=== PATIENT | female | born 1970 | race Caucasian/White ===

== ENCOUNTER 2025-08-26 20:06 | Emergency (ER) | payer MEDICAID, MEDICARE, OTHER ==
[~2025-08-26] VITALS: Ht 157.5 cm; Wt 88.6 kg
[2025-08-26] MEDS ORDERED: NOXI1TAB PO (20:22)
[2025-08-26] MEDS ORDERED: SYNT137T7 PO (20:22)
[2025-08-26] MEDS ORDERED: LORA1TAB23 PO (20:22)
[2025-08-26 20:36] LABS: KETONE, URINE AUTO RFX TRACE mg/dL (NEGATIVE); LEUKOCYTE ESTERASE UR AUTO RFX 1+ (NEGATIVE); MUCUS, URINE RFX SMALL (NEGATIVE); NITRITE, URINE AUTO RFX NEGATIVE (NEGATIVE); RBC, URINE AUTO RFX 2 /HPF (0-3); SQUAM EPITHELIAL CELL UR AURFX 9 /HPF (0-6); WBC, URINE AUTO RFX 10 /HPF (0-3)
[2025-08-26] MEDS ORDERED: SULF-7 PO (22:06)
[2025-08-26] MEDS ORDERED: FLUC150T9 PO (22:06)
[2025-08-26 22:24] VITALS: BP 146/73; TEMP 97.3; O2SAT 98
== END 2025-08-26 22:25 | disposition home or self-care (01) ==
LOC: M ED 20:06
DX: N39.0 Urinary tract infection, site not specified (principal); Z88.0 Allergy status to penicillin